=== PATIENT | male | born 1980 | race African-American/Black ===

== ENCOUNTER 2018-02-06 13:22 | Emergency (ER) | payer SELFPAY ==
[~2018-02-06] VITALS: Ht 172.7 cm; Wt 85.8 kg
[2018-02-06] MEDS ORDERED: FLEXERIL10 MG PO (16:30)
[2018-02-06] MEDS ORDERED: LIDODERM 5% P1 PATCH TD (16:30)
[2018-02-06] MEDS ORDERED: NAPROSYN500 MG PO (16:30)
[2018-02-06 16:41] LABS: APPEARANCE SL.HAZY ((CLEAR)); BILIRUBIN NEGATIVE; BLOOD NEGATIVE; COLOR YELLOW ((YELLOW)); GLUCOSE (STRIP) NEGATIVE; KETONES NEGATIVE; LEUKOCYTES TRACE; NITRITE NEGATIVE; PROTEIN (STRIP) NEGATIVE; SPECIFIC GRAVITY 1.024 (1.000-1.030); UROBILINOGEN 0.2 MG/DL (0.2-1.0)
[2018-02-06 17:02] LABS: BACTERIA RARE /HPF; EPITHELIAL CELLS RARE /HPF; HYALINE CASTS 0-5 /LPF; MUCUS 3+ /LPF; RED BLOOD CELLS 0-5 /HPF (0-5); WHITE BLOOD CELLS 0-5 /HPF (0-5)
[2018-02-06 17:05] VITALS: BP 116/59
== END 2018-02-06 17:08 | disposition home or self-care (01) ==
LOC: EME 13:22
PROVIDERS: Nurse Practitioner Family
DX: M54.16 Radiculopathy, lumbar region (principal); M25.551 Pain in right hip; F17.200 Nicotine dependence, unspecified, uncomplicated
CPT/HCPCS: 73502; 81003; 99281; 99283